=== PATIENT | female | born 1965 | race Caucasian/White ===

== ENCOUNTER 2020-02-16 17:37 | Emergency (ER) | payer MEDICAID ==
[~2020-02-16] VITALS: Ht 157.5 cm; Wt 65.3 kg
[2020-02-16 17:49] VITALS: Ht 157.5 cm; Wt 65.3 kg
[2020-02-16 18:55] VITALS: BP 133/90
== END 2020-02-16 18:55 | disposition home or self-care (01) ==
LOC: ED 17:37
DX: M17.12 Unilateral primary osteoarthritis, left knee (principal); I10 Essential (primary) hypertension

== ENCOUNTER 2020-02-19 09:32 | Emergency (ER) | payer MEDICAID ==
[~2020-02-19] VITALS: Ht 154.9 cm; Wt 62.1 kg
[2020-02-19 10:08] VITALS: Ht 154.9 cm; Wt 62.1 kg
[2020-02-19 11:03] LABS: BASOPHIL % 0.3 % (0-2); PLATELET COUNT 338 x10^3mcL (130-400); RED CELL DISTRIBUTION WIDTH 13.3 % (11.5-14.5)
[2020-02-19 11:10] LABS: CALCIUM 9.5 mg/dL (8.5-10.1); CARBON DIOXIDE 28.7 mmol/L (21-32); CHLORIDE SERUM 105 mmol/L (98-107); CREATININE SERUM 0.7 mg/dL (0.6-1.0); GFR1 > 60 mL/min; GLUCOSE SERUM 104 mg/dL (74-106); POTASSIUM SERUM 4.3 mmol/L (3.5-5.1); SODIUM SERUM 142 mmol/L (136-145)
[2020-02-19 11:15] LABS: ALBUMIN 4.2 g/dL (3.4-5.0); ALKALINE PHOSPHATASE 62 U/L (46-116); ALT/SGPT 19 U/L (14-59); AST/SGOT 13 U/L (15-37); BILIRUBIN TOTAL 0.6 mg/dL (0.20-1.00); TOTAL PROTEIN, SERUM 7.3 g/dL (6.4-8.2)
[2020-02-19 12:54] VITALS: BP 116/70
== END 2020-02-19 12:54 | disposition home or self-care (01) ==
LOC: ED 09:32
PROVIDERS: Emergency Medicine
DX: R07.89 Other chest pain (principal); R20.2 Paresthesia of skin; R20.0 Anesthesia of skin; I10 Essential (primary) hypertension
CPT/HCPCS: 36415; 83880; Q0092